=== PATIENT | male | born 1985 | race Asian ===

== ENCOUNTER 2016-10-09 09:13 | Emergency (ER) | payer OTHER ==
[~2016-10-09] VITALS: Ht 177.8 cm; Wt 102.1 kg
[2016-10-09 09:30] VITALS: BP 114/68; TEMP 98.6
[2016-10-09 11:03] LABS: POTASSIUM 3.7 mmol/L (3.6-5.2)
[2016-10-09 11:34] LABS: PLATELET COUNT 239 K/uL (142-355)
== END 2016-10-09 12:00 | disposition home or self-care (01) ==
LOC: ED 09:13 → EDBD 09:13 → ED 12:00
DX: R10.30 Lower abdominal pain, unspecified (principal); D72.829 Elevated white blood cell count, unspecified; K40.90 Unilateral inguinal hernia, without obstruction or gangrene, not specified as recurrent
CPT/HCPCS: 36415; 80053; 81000; 85027; 99283

== ENCOUNTER 2020-02-02 19:23 | Emergency (ER) | payer OTHER ==
[~2020-02-02] VITALS: Ht 167.6 cm; Wt 93.0 kg
[2020-02-02 21:24] VITALS: BP 131/78; TEMP 98.5
== END 2020-02-02 21:24 | disposition home or self-care (01) ==
LOC: ED 19:23
DX: S53.491A Other sprain of right elbow, initial encounter (principal); S63.8X1A Sprain of other part of right wrist and hand, initial encounter; S59.811A Other specified injuries right forearm, initial encounter; W10.8XXA Fall (on) (from) other stairs and steps, initial encounter; Y92.89 Other specified places as the place of occurrence of the external cause
CPT/HCPCS: 96372; 99283; J1885